=== PATIENT | female | born 1970 | race Caucasian/White ===

== ENCOUNTER → 2023-09-11 07:56 | Outpatient (REF) | payer OTHER, SELFPAY | LOC: WDC 07:56 | PROVIDERS: ATTENDING PHYSICIAN Internal Medicine | DX: Z12.31 Encounter for screening mammogram for malignant neoplasm of breast (principal) | CPT/HCPCS: 77063; 77067 ==

== ENCOUNTER → 2024-03-01 08:42 | Outpatient (REF) | payer OTHER, SELFPAY | LOC: RCS 08:42 | PROVIDERS: ATTENDING PHYSICIAN Physician Assistant Medical; FAMILY PHYSICIAN Internal Medicine | DX: I49.3 Ventricular premature depolarization (principal) | CPT/HCPCS: 93306 ==

== ENCOUNTER → 2024-10-11 12:47 | Outpatient (REF) | payer OTHER, SELFPAY | LOC: WDC 12:47 | PROVIDERS: ATTENDING PHYSICIAN Internal Medicine | DX: Z12.31 Encounter for screening mammogram for malignant neoplasm of breast (principal) | CPT/HCPCS: 77063; 77067 ==